=== PATIENT | male | born 1960 | race Caucasian/White ===

== ENCOUNTER 2024-02-04 22:41 | Emergency (ER) | payer OTHER, BC, SELFPAY ==
[2024-02-04 22:42] VITALS: BP 177/90; PULSE 101; RESP 18; TEMP 36.6; O2SAT 98; BMI 38.7
--- NOTE | 2024-02-04 22:52 | EX.ED.UPPERE ---
HPI <Dr. Phu Felix DO - Last Filed: 02/05/24 04:51> History of Present Illness Chief Complaint: Laceration Informant: patient Narrative Narrative: [id number] at left index finger injury at work 9:45 PM. 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 He is on baby aspirin. Tetanus unknown. Bleeding controlled with pressure. No other injuries. No paresthesia or loss of function. Tetanus Immunization: Unknown Prior similar symptoms: Yes PFSH <Dr. Phu Felix DO - Last Filed: 02/05/24 04:51> PFSH Allergy/AdvReac Type Severity Reaction Status Date / Time No Known Allergies Allergy Verified 02/04/24 22:42 Social History Smoking Status: Never smoker ROS <Dr. Phu Felix DO - Last Filed: 02/05/24 04:51> ROS ED Constitutional Constitutional ED: Denies chills, fever(s) or sweats Cardiovascular Cardiovascular: Denies chest pain Respiratory/Chest Respiratory/Chest: Denies cough Gastrointestinal Gastrointestinal: Denies diarrhea, nausea or vomiting Musculoskeletal Musculoskeletal: Denies extremity pain Integumentary Reports wounds Neurologic Neurologic: Denies paresthesias or weakness EXAM <Dr. Phu Felix DO - Last Filed: 02/05/24 04:51> Physical Exam Const Vital Signs: 02/04/24 22:42 Temperature 98 F Temperature Source Oral Pulse Rate 101 H Respiratory Rate 18 Blood Pressure 177/90 H Blood Pressure Mean 119 Pulse Ox 98 Oxygen Delivery Method Room Air Positive well nourished and well developed General Appearance ED: well developed and NAD HEENT Reports moist mucous membranes normocephalic and atraumatic Eyes EOMs intact bilaterally and conjunctivae normal General Eye ED: Yes normal appearance of both eyes Neck General: Negative for tenderness Chest Wall Chest: Negative for tenderness Resp normal respiratory effort and normal air movement Effort and Inspection: symmetric chest movement; Negative for respiratory distress Cardio regular rate, regular rhythm and no murmurs Peripheral Pulses: pulses 2+ throughout GI normal to inspection, nondistended, normoactive bowel sounds and non-tender Palpation: Negative for guarding or rebound tenderness present Extremity Extremity Narrative: Left upper extremity: Index finger: Dressing removed flap laceration vertically along the radial aspect nail, no nailbed involvement. Bleeding controlled with pressure. No injury into the joint. Full range of motion of the DIP joint. General Extremety ED: Negative for edema General Extremity: Negative for edema Neuro oriented x3 and no sensory deficits noted Sensorium / Orientation: awake and alert Skin Skin Narrative: See above MDM <Dr. Phu Felix, DO - Last Filed: 02/05/24 04:51> MDM MDM Narrative Medical decision making narrative: Interventions / MDM: Differential diagnosis: Left index laceration. Diagnosis considered but do not suspect: No clinical tendon injury My EKG interpretation: N/A Imaging independently reviewed and interpreted by myself: N/A External documents reviewed: N/A Test considered but not ordered:N/A ED course: Laceration left index finger tetanus updated. Injury not an area of tendon concerns. No nailbed involvement. Patient's laceration repaired by Dr. Flores. See his note. Wound care discussed with patient. Outpatient follow-up. Re-evaluation: stable Disposition discussed with patient/family/significant other: Patient Case discussed with consulting clinician: N/A This note was generated with [employer] dictation software. It may contain incorrect words, spelling, and punctuation that were not noted in checking the note before signing. Procedures <Dr. Eduar Flores, DO - Last Filed: 02/04/24 23:45> Lacerations Left index finger: Length: 1.18 in Depth: Sub Q Shape: Flap Prep: Sterile Conditions and Chlorhexadine Laceration repair: Digital block, Irrigated, Lidocaine, Skin sutures and Wound explored Irrigated (ml): 100 Number of Sutures/[place]: 6 Suture Information: Ethilon, Simple and 4-0 Comment: The left index finger was cleaned and irrigated with copious amounts normal saline. The left index finger was anesthetized with 1% lidocaine via digital block. The wound was explored. There are no foreign bodies. There is moderate gapping of the wound margins. The wound was closed with 6 simple interrupted #4-0 Ethilon sutures under sterile technique. Patient tolerated the procedure well. Bacitracin dressing was applied. Discharge Plan Triage Chief Complaint: Laceration ED Provider: Phu Felix Dx/Rx/DC Orders Clinical Impression: Laceration of left index finger, Tetanus toxoid vaccination administered at current visit, Work related injury Instructions: ED Laceration, All Closures Primary Care Provider: Micheal Ward: Micheal Ward, DO [Primary Care Provider] - Activity Restrictions/Additional Instructions: Tetanus updated. Stitches placed in the ED. Follow-up with occupational health. Remove stitches in 10 to 14 days. Print Language: Welsh Disposition Disposition: Home, Self Care Discharge Date/Time: 02/05/24 00:04
[2024-02-04] MEDS: Lidocaine 1% (20 ml mdv) 20 ML Vial INFILT (22:59)
[2024-02-04] MEDS: Diphth,Pertuss(Acell),Tet Vac 0.5 ML Vial IM (22:59)
== END 2024-02-05 00:04 | disposition home or self-care (01) ==
PROVIDERS: Emergency Provider Emergency Medicine; PCP Family Medicine; Visit Provider Emergency Medicine
DX: S61.211A Laceration without foreign body of left index finger without damage to nail, initial encounter (principal); Z79.82 Long term (current) use of aspirin; Z23 Encounter for immunization; Y99.0 Civilian activity done for income or pay; W26.0XXA Contact with knife, initial encounter
CPT/HCPCS: 12001; 90471; 90715; 99283